=== PATIENT | female | born 1960 | race Caucasian/White ===

== ENCOUNTER → 2022-08-01 14:13 | Outpatient (CLI) | payer OTHER, SELFPAY ==
--- NOTE | ~2022-08-01 | MR_ITS ---
EXAMINATION: MR shoulder RT wo con DATE: 08/01/2022 14:50 INDICATION: Right shoulder pain TECHNIQUE: Magnetic resonance imaging (MRI) of the right shoulder was performed without intravenous c ontrast. Sequences included axial PD-weighted FS FSE, coronal oblique PD-weighted FS FSE, coronal obl ique T2-weighted FS FSE, sagittal PD-weighted FS FSE, and sagittal T1-weighted SE. COMPARISON: None. FINDINGS: Coracoacromial arch: The acromion undersurface is curved in morphology (type II). Tiny anterior subacromial spur at the ac romial insertion of the normal coracoacromial ligament. Mild acromioclavicular osteoarthritis. Rotator cuff: Mild supraspinatus tendinopathy without tear. The infraspinatus, teres minor and subscapularis tendon s are normal. Normal rotator cuff muscle bulk and signal. Biceps tendon, glenoid labrum and glenohumeral cartilage: Long head of the biceps tendon is normal. Mild partial-thickness cartilage loss at the glenoid and hu meral head with smooth chondral surface. Deep chondral fissure and adjacent small tear at the base of the labrum at the 8:00 position posteriorly. Fluid: Physiologic amount of fluid in the glenohumeral joint and biceps tendon sheath. No loose osteochondr al bodies. Mild increased fluid signal along the subdeltoid bursa consistent with minimal bursitis. Bones: Normal marrow signal with no fracture or pathologic marrow replacing process. IMPRESSION: 1. Mild supraspinatus tendinopathy without discrete tear. 2. Mild glenohumeral osteoarthritis with deep chondral fissure and isn't very small tear at the base of the posterior glenoid labrum. 3. Mild acromioclavicular osteoarthritis. Reviewed, dictated and finalized at location B. ING [employer]PERVISOR IMPRESSION: 1. Mild supraspinatus tendinopathy without discrete tear. 2. Mild glenohumeral osteoarthritis with deep chondral fissure and isn't very s mall tear at the base of the posterior glenoid labrum. 3. Mild acromioclavicular osteoarthritis.
== END ==
PROVIDERS: PCP Family Medicine; Visit Provider Orthopaedic Surgery
DX: M25.511 Pain in right shoulder (principal); M75.81 Other shoulder lesions, right shoulder; M19.011 Primary osteoarthritis, right shoulder
CPT/HCPCS: 73221